=== PATIENT | male | born 1950 | race Caucasian/White ===

== ENCOUNTER → 2016-07-29 | Day surgery (SDC) | payer MEDICARE ==
[~2016-07-29] MED LIST: ASPI81TA2 PO; GABA-586 PO; IV RINGERS,LACTATED 1000ML 1,000 ML IV SCH; LIDOCAINE 2% PF Vial for OR 5 ML VIAL. ONE; MELA3TAB PO; PROPOFOL 20 ML IV ONE; SIMV40TA3 PO
[2016-07-29 08:48] VITALS: BP 112/62
== END | disposition home or self-care (01) ==
LOC: ENDOS 06:48
PROVIDERS: ATTEND Internal Medicine Gastroenterology
DX: Z12.11 Encounter for screening for malignant neoplasm of colon (principal); K64.0 First degree hemorrhoids; E78.00 Pure hypercholesterolemia, unspecified; J44.9 Chronic obstructive pulmonary disease, unspecified; F10.99 Alcohol use, unspecified with unspecified alcohol-induced disorder; F17.200 Nicotine dependence, unspecified, uncomplicated
CPT/HCPCS: G0121; J2704

== ENCOUNTER → 2017-05-12 | Outpatient (CLI) | payer BC ==
[2016-07-29 08:48] VITALS: BP 112/62
[~2017-05-12] MED LIST changes: +ASPI-630 PO; -ASPI81TA2 PO; -IV RINGERS,LACTATED 1000ML 1,000 ML IV SCH; -LIDOCAINE 2% PF Vial for OR 5 ML VIAL. ONE; -MELA3TAB PO; +MELA3TAB2 PO; -PROPOFOL 20 ML IV ONE
--- NOTE | 2017-05-12 11:03 | KCIC ---
INDICATION: Low back pain for years. Right sided pain and numbness into the upper thigh which is new. TECHNIQUE: Sagittal T1, sagittal T2, sagittal STIR, axial T1, and axial T2 sequences are provided. No comparison MRI is available. FINDINGS: There is mild motion degradation. There is no malalignment. There is no marrow edema. There is no worrisome marrow lesion. There is diffuse disc desiccation. There are small Schmorl's nodes. Disc height is relatively maintained. Conus medullaris is normal in signal intensity and in position. Sacral perineural cysts are noted. Subcutaneous edema is noted. The numbering system assumes 5 lumbar type vertebral bodies. Findings by individual level are as follows: T12-L1: There is a diffuse disc bulge. There is a right paracentral extrusion migrating superiorly, as it migrates superiorly it migrates more towards the midline. At its right paracentral base it measures 14 mm transverse. The extrusion component in the midline measures 9 mm transverse, 2 mm AP, and 15 mm craniocaudal. There is facet hypertrophy. There is no canal stenosis, midline AP diameter of the thecal sac still 11-12 mm. There is no foraminal compromise. L1-L2: Central protrusion measures 12 mm at its base and 4 mm in height. There is facet hypertrophy. Midline AP diameter of the thecal sac is still 12-13 mm. There is no foraminal compromise. L2-L3: Disc bulge and mild facet and ligamentum flavum hypertrophy are noted without canal or foraminal compromise. Midline AP diameter of the thecal sac is 14 mm. L3-L4: Disc bulge and mild facet and ligamentum flavum hypertrophy are noted, midline AP diameter of the thecal sac is still 12 mm. There is no foraminal narrowing. L4-L5: There is a disc bulge which is slightly eccentric to the right. There is mild to moderate facet and ligamentum flavum hypertrophy. Midline AP diameter of the thecal sac is narrowed to 9 mm. There is right lateral recess narrowing which could explain a right L5 radiculopathy. There is left lateral recess narrowing as well, to a lesser degree. Foraminal narrowing is [id number] on the right and mild on the left. L5-S1: Disc bulge and facet hypertrophy are noted with [id number] right foraminal narrowing. IMPRESSION: Degenerative changes in the lumbar spine are greatest at L4-L5 and L5-S1. Electronically signed by: Pantera Abel MD (05/12/2017 10:59 AM) [id number]
== END | disposition home or self-care (01) ==
LOC: KCIC MRI 09:24
PROVIDERS: ATTEND Psychiatry & Neurology Neurology
DX: M47.896 Other spondylosis, lumbar region (principal); M47.897 Other spondylosis, lumbosacral region; M54.16 Radiculopathy, lumbar region; R60.9 Edema, unspecified; R20.0 Anesthesia of skin
CPT/HCPCS: 72148

== ENCOUNTER → 2017-07-28 | Outpatient (CLI) | payer BC ==
[~2017-07-28] MED LIST changes: -ASPI-630 PO; -GABA-586 PO; +IOHEXOL 180 MG/ML 10 ML VIAL.; -MELA3TAB2 PO; -SIMV40TA3 PO; +methylPREDNISolone ACETATE 40 MG/ML VIAL.; +methylPREDNISolone ACETATE 80 MG/ML VIAL.
== END ==
LOC: PNCL 12:28
DX: M51.16 Intervertebral disc disorders with radiculopathy, lumbar region (principal); F17.210 Nicotine dependence, cigarettes, uncomplicated; M54.5 Low back pain; M19.90 Unspecified osteoarthritis, unspecified site; E78.00 Pure hypercholesterolemia, unspecified; J44.9 Chronic obstructive pulmonary disease, unspecified; Z85.89 Personal history of malignant neoplasm of other organs and systems; Z98.890 Other specified postprocedural states; Z85.46 Personal history of malignant neoplasm of prostate; Z88.2 Allergy status to sulfonamides; Z85.828 Personal history of other malignant neoplasm of skin
CPT/HCPCS: 62323; J1030; J1040; Q9965

== ENCOUNTER → 2017-09-24 | Outpatient (CLI) | payer BC | END | disposition home or self-care (01) | LOC: PNCL 09:24 | DX: M51.16 Intervertebral disc disorders with radiculopathy, lumbar region (principal); E78.00 Pure hypercholesterolemia, unspecified; J44.9 Chronic obstructive pulmonary disease, unspecified; Z72.89 Other problems related to lifestyle; F17.210 Nicotine dependence, cigarettes, uncomplicated; Z98.890 Other specified postprocedural states; Z85.828 Personal history of other malignant neoplasm of skin | CPT/HCPCS: 62323; J1030; J1040; Q9965 ==

== ENCOUNTER → 2017-12-16 | Outpatient (CLI) | payer BC ==
[~2017-12-16] MED LIST changes: +LIDOCAINE 2% PF 2ML VIAL.
== END | disposition home or self-care (01) ==
LOC: PNCL 09:00
DX: M51.16 Intervertebral disc disorders with radiculopathy, lumbar region (principal); E78.00 Pure hypercholesterolemia, unspecified; J44.9 Chronic obstructive pulmonary disease, unspecified; Z72.89 Other problems related to lifestyle; Z98.890 Other specified postprocedural states; Z85.828 Personal history of other malignant neoplasm of skin; Z79.899 Other long term (current) drug therapy; F17.210 Nicotine dependence, cigarettes, uncomplicated
CPT/HCPCS: 62323; J1030; J1040; J2001; Q9965

== ENCOUNTER → 2018-04-19 | Outpatient (CLI) | payer BC ==
[2016-07-29 08:48] VITALS: BP 112/62
[~2018-04-19] MED LIST changes: +ASPI-630 PO; +GABA300C18 PO; -IOHEXOL 180 MG/ML 10 ML VIAL.; -LIDOCAINE 2% PF 2ML VIAL.; +MELA3TAB2 PO; +NAPR-514 PO; +SIMV40TA3 PO; +TIZA4TAB PO; +VITA1TAB19 PO; -methylPREDNISolone ACETATE 40 MG/ML VIAL.; -methylPREDNISolone ACETATE 80 MG/ML VIAL.
--- NOTE | 2018-04-19 11:43 | KCIC ---
DATE: 04/19/2018 EXAM: DIGITAL DIAGNOSTIC BILATERAL, BREAST RIGHT HISTORY: Right breast lump COMPARISON: Baseline study This study was interpreted with the benefit of Computerized Aided Detection (CAD). Breast Density: FATTY The breast parenchyma is primarily fatty replaced. Breast parenchyma level density A. FINDINGS: The patient cannot pinpoint a lump at this time. Reportedly the area of palpable concern was in the right retroareolar region. The breasts are predominantly fatty in nature. No mass or unusual densities are seen. No suspicious microcalcifications are evident. Benign-appearing lymph node type densities are present in the axillary regions. Right breast ultrasound, 04/19/2018: Right breast was carefully scanned. No mass or unusual fluid collection is seen. IMPRESSION: 1. No mammographic abnormality is detected. 2. The targeted ultrasound exam of the right breast reveals no abnormality. 3. Clinical surveillance is suggested. BI-RADS CATEGORY: 1 NEGATIVE RECOMMENDED FOLLOW-UP: CLIN FOLLOW UP IMAGING CLINICALLY INDICATED PQRS compliance statement: Patient information was entered into a reminder system with a target due date for the next mammogram. Mammography is a sensitive method for finding small breast cancers, but it does not detect them all and is not a substitute for careful clinical examination. A negative mammogram does not negate a clinically suspicious finding and should not result in delay in biopsying a clinically suspicious abnormality. "Our facility is accredited by the [employer] Mammography Program."
== END | disposition home or self-care (01) ==
LOC: KCIC MAMMO 10:13
PROVIDERS: ATTEND Family Medicine
DX: R92.8 Other abnormal and inconclusive findings on diagnostic imaging of breast (principal)
CPT/HCPCS: 76641; 77066

== ENCOUNTER → 2018-07-29 | Outpatient (CLI) | payer BC ==
[2016-07-29 08:48] VITALS: BP 112/62
[~2018-07-29] MED LIST changes: +IOHEXOL 180 MG/ML 10 ML VIAL. ONE; +methylPREDNISolone ACETATE 40 MG/ML VIAL. ONE; +methylPREDNISolone ACETATE 80 MG/ML VIAL. ONE
--- NOTE | 2018-07-30 | PAIN ---
DATE OF SERVICE: 07/29/2018 PROGRESS NOTE FOR PAIN CLINIC DIAGNOSES: Lumbar radiculopathy with lumbar degenerative disk disease. HISTORY OF PRESENT ILLNESS: The patient is a 68-year-old male who returns for followup status post lumbar epidural steroid injections, last seen 12/2017. The patient did very well with about 75% improvement with the injections. The patient reports the pain is returning now in the low back, right lower extremity, posterior gluteus, posterolateral thigh, lateral anterior thigh, anterior medial thigh, medial lower leg and calf; worse with standing, walking, changing positions and better with sitting or lying down. It generally does not awaken him from sleep at night. It is mostly noticeable with walking. The patient reports he did very well over several months, but the pain is returning now in the low back and right leg. The patient reports it is an aching pain that is dull. Some numbness and tingling in the thigh as well anteriorly. The patient reports it is a 10 on scale of 10 at its worst, 8 on average, a 7 at its least and it is a 7 today. The patient reports no new motor or sensory deficits. No new bowel or bladder incontinence or other complaints. Initially, he was doing much better with distance walking, household activities as well as traveling with much greater ease and comfort, but again the pain is returning in the low back and right lower extremity. The patient reports no loss of motor function, but significant fatigability of the right leg. No symptoms on the left side. PHYSICAL EXAMINATION: VITAL SIGNS: The patient's blood pressure is 113/74, pulse 67, respirations 18 and temperature is 98.1 degrees Fahrenheit. Weight is 224 pounds. GENERAL: The patient is awake, alert, oriented and appropriate. He has a very pleasant demeanor. HEENT EXAMINATION: Shows normocephalic, atraumatic. Extraocular movements are intact and symmetrical. Oral cavity, mucous membranes moist and pink. Dentition is intact. NECK: Shows anterior throat supple, without palpable lymphadenopathy noted. Swallow reflex is symmetrical. CHEST: Shows normal with inspection. Breath sounds are clear to auscultation bilaterally. HEART: Shows S1, S2 clear. No murmurs auscultated. ABDOMEN: Soft, nontender and nondistended. No palpable organomegaly is noted. No rebound or guarding demonstrated. BACK: Shows spine grossly in the midline. Normal-appearing thoracic kyphosis and lumbar lordotic curvature. Lumbar paraspinous muscle shows symmetrical on inspection. On palpation, it shows some moderate tenderness diffusely in the middle distribution, without significant radiation. EXTREMITIES: The patient's lower extremities show deep tendon reflexes at 2+ in the patella and 1+ tendo calcaneus tendons, equal. Motor exam is strong with 5/5 on dorsiflexion, extension, quadriceps and hamstring flexion and symmetrical. Peripheral pulses are 1+ posterior tibia. No peripheral edema is noted. The patient does have a mild straight leg raise on the right side, only about 40-45 degrees, decreased with knee flexion; left side is negative. Options were discussed with the patient. The patient's old chart was reviewed as was his current medication regimen updated. Current review of systems updated today as well. We will proceed with a lumbar epidural steroid injection today as the first in this series with fluoroscopic guidance. Risks were again discussed including, but not limited to bleeding, infection, possibility of epidural hematoma, subsequent neurological compromise, dural puncture, headaches, spinal cord and/or nerve damage, side effects of steroid medication and poor results regarding pain control. The patient understands and wishes to proceed. The patient will return to clinic in approximately 2 weeks for followup. He was counseled on his return appointment, activity level, and side effects to be aware of. DIAGNOSES: Lumbar radiculopathy with lumbar degenerative disk disease. PROCEDURE: Lumbar epidural steroid injection in translaminar approach at L4-L5 level using C-arm fluoroscopic guidance under sterile prep and drape using local anesthetic. MEDICATION INJECTED: A total of 120 mg 2 mL of Isovue for contrast. CONDITION AT DISCHARGE: Stable. The patient tolerated procedure well, had no complications. BERAT LEVY MD DR: FRANCESCO/daniel JOB#: [id number] / [id number]
== END | disposition home or self-care (01) ==
LOC: PNCL 10:51
PROVIDERS: ATTEND Anesthesiology
DX: M51.16 Intervertebral disc disorders with radiculopathy, lumbar region (principal)
CPT/HCPCS: 62323; J1030; J1040; Q9965

== ENCOUNTER → 2018-10-27 | Outpatient (CLI) | payer BC ==
[2016-07-29 08:48] VITALS: BP 112/62
[~2018-10-27] MED LIST changes: -IOHEXOL 180 MG/ML 10 ML VIAL. ONE; -methylPREDNISolone ACETATE 40 MG/ML VIAL. ONE; -methylPREDNISolone ACETATE 80 MG/ML VIAL. ONE
--- NOTE | 2018-10-27 13:28 | KCIC ---
Bilateral Leg Venous Doppler Ultrasound, 10/27/2018 Indication: Left lower extremity swelling Comparison: None available Procedure: Real-time grayscale, color flow color duplex Doppler and spectral analysis are obtained with and without compression in the area of the common femoral vein, superficial femoral vein - femoral vein junction, main femoral vein (superficial femoral vein) and popliteal vein. Veins of the proximal calf are also imaged. Findings: There is normal duplex flow, color flow and compressibility of all visualized vein segments. No evidence of deep venous thrombus is present. Impression: Negative venous Doppler of bilateral lower extremity Electronically signed by: Tatyana Ortega MD (10/27/2018 1:25 PM) [place] [id number]
== END | disposition home or self-care (01) ==
LOC: KCIC US 09:43
PROVIDERS: ATTEND Family Medicine
DX: M79.89 Other specified soft tissue disorders (principal)
CPT/HCPCS: 93970

== ENCOUNTER → 2018-11-09 | Outpatient (CLI) | payer BC ==
[2016-07-29 08:48] VITALS: BP 112/62
[~2018-11-09] MED LIST changes: +IOHEXOL 180 MG/ML 10 ML VIAL. ONE; +methylPREDNISolone ACETATE 40 MG/ML VIAL. ONE; +methylPREDNISolone ACETATE 80 MG/ML VIAL. ONE
--- NOTE | 2018-11-09 19:10 | PAIN ---
DATE OF SERVICE: 11/09/2018 PROGRESS NOTE FOR PAIN CLINIC DIAGNOSES: Lumbar radiculopathy with lumbar degenerative disk disease. HISTORY OF PRESENT ILLNESS: The patient is a 68-year-old male who returns for followup status post lumbar epidural steroid injection x 1 in 07/29/2017. He did very well with about 75% improvement. For about the first month, the patient reports the pain is returning now in the low back, right lower extremity mostly in the posterior gluteus, lateral thigh, anterior thigh and medial thigh on the right side. The patient reports it is worse with walking, standing, changing positions, better with sitting or resting, still wakes him from sleep occasionally, but not most nights. The patient reports it is a 10 on a scale of 10 at its worst in the past week, 9 on average and 8 on its least and is an 8 today. The patient reports no new motor or sensory deficits, no new bowel or bladder incontinence. He describes the pain as aching and dull with some shooting pain in the right leg is noticed again with activity. PHYSICAL EXAMINATION: VITAL SIGNS: The patient's blood pressure 132/71, pulse 64, respirations 18, temperature 98.2 degrees Fahrenheit, height 6 feet 1 inch, weight is 225 pounds. GENERAL: The patient is awake, alert, oriented, appropriate, very pleasant demeanor. HEENT: Head is normocephalic, atraumatic. Extraocular movements are intact and symmetrical. Oral cavity: Mucous membranes moist and pink. Dentition is intact. NECK: Shows anterior throat supple without palpable lymphadenopathy noted. Swallow reflex symmetrical. CHEST: Shows normal with inspection. Breath sounds clear to auscultation bilaterally. HEART: Shows S1, S2 clear. No murmurs auscultated. ABDOMEN: Soft, nontender, nondistended. No palpable organomegaly is noted. There is no rebound or guarding demonstrated. BACK: Shows spine grossly in the midline. Normal appearing thoracic kyphosis and lumbar lordotic curvature. Lumbar paraspinous muscle shows symmetrical on inspection. On palpation shows some moderate tenderness diffusely, but only diffusely in the low lumbar distribution without radiation. The patient has good rotational motion of the lumbar spine, both laterally as well as extension and flexion without difficulty. EXTREMITIES: The patient's lower extremities show deep tendon reflexes at 2+ in the patellar, 1+ tendo-calcaneus tendons. Motor exam is strong with 5/5 dorsiflexion, extension, quadriceps and hamstring flexion and are symmetrical. Peripheral pulses are 1+ posterior tibial. No peripheral edema is noted bilaterally. Options were discussed with the patient. The patient's old chart was reviewed as his current medication regimen updated. Current review of systems updated today as well. We will proceed with a second in this series of lumbar epidural steroid injection today with fluoroscopic guidance. Risks were again discussed including, but not limited to bleeding, infection, possibility of epidural hematoma, subsequent neurological compromise, dural puncture, headaches, spinal cord and/or nerve damage, side effects of steroid medication and poor results regarding pain control. The patient understands and wished to proceed. The patient will return to clinic in approximately 2 weeks for followup, was counseled as to return appointment, activity level and side effects to be aware of. DIAGNOSES: Lumbar radiculopathy with lumbar degenerative disk disease. PROCEDURE: Lumbar epidural steroid injection, translaminar approach L4-L5 level using C-arm fluoroscopic guidance under sterile prep and drape using local anesthetic. MEDICATION INJECTED: A total of 120 mg Depo-Medrol plus 10 mL of preservative-free normal saline and 2 mL of Isovue for contrast. CONDITION AT DISCHARGE: Stable. The patient tolerated procedure well, had no complications. BERTA LEVY MD DR: FRANCESCO/daniel JOB#: [id number] / [id number]
== END ==
LOC: PNCL 09:17
PROVIDERS: ATTEND Anesthesiology
DX: M51.16 Intervertebral disc disorders with radiculopathy, lumbar region (principal); M54.5 Low back pain
CPT/HCPCS: 62323; J1030; J1040; Q9965

== ENCOUNTER → 2019-02-03 | Outpatient (CLI) | payer BC ==
[2016-07-29 08:48] VITALS: BP 112/62
[~2019-02-03] MED LIST changes: -MELA3TAB2 PO; +MELA3TAB56 PO; -TIZA4TAB PO; +TIZA4TAB2 PO
--- NOTE | 2019-02-03 20:45 | PAIN ---
DATE OF SERVICE: 02/03/2019 PROGRESS NOTE FOR PAIN CLINIC DIAGNOSES: Lumbar radiculopathy with lumbar degenerative disk disease. HISTORY OF PRESENT ILLNESS: The patient is a 68-year-old male who returns for followup status post lumbar epidural steroid injection x 2, last seen 11/09/2018, very well, about 75% improvement only for several weeks after the injection. The patient reports that after that time, the pain returns, fairly significantly low back and right lower extremity, mostly in the posterior gluteus, posterior thigh, lateral calf, lateral thigh and anterior thighs to some extent in the posterior calf as well. The patient reports it is a 10 on a scale of 10 at its worst over the past week 10 on average and 9 at its least and is a 10 today. The patient reports it is aching and dull, shooting at times, worse with walking, standing, sitting for prolonged periods. Does not awaken her from sleep at night; however, initially was doing better with distance walking, doing work activities, household activities. 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 PHYSICAL EXAMINATION: VITAL SIGNS: The patient's blood pressure 123/69, pulse 67, respirations are 16, temperature is 98.4 degrees Fahrenheit, weight is 227 pounds. GENERAL: The patient is awake, alert, oriented, appropriate, very pleasant demeanor. HEENT: Shows normocephalic, atraumatic. Extraocular movements are intact and symmetrical. Oral cavity: Mucous membranes moist and pink. Dentition is intact. NECK: Shows anterior throat supple without palpable lymphadenopathy noted. Swallow reflex symmetrical. CHEST: Shows normal on inspection. Breath sounds are clear to auscultation bilaterally. HEART: Shows S1, S2 clear. No murmurs auscultated. ABDOMEN: Soft, nontender, nondistended. No palpable organomegaly is noted. No rebound or guarding demonstrated. BACK: Shows spine grossly in the midline. Normal appearing thoracic kyphosis, some minor flattening of lumbar lordotic curvature. Lumbar paraspinous muscle shows symmetrical on inspection, on palpation shows some moderate tenderness, but only diffusely without radiation. EXTREMITIES: The patient's lower extremities show deep tendon reflexes 2+ in the patellar, 1+ tendo-calcaneus tendons. Motor exam is strong with 5/5 dorsiflexion, extension, quadriceps and hamstring flexion symmetrical. Peripheral pulses are 1+ posterior tibia. No peripheral edema is noted. Options were discussed with the patient. The patient's old chart was reviewed as his current medication regimen updated. Current review of systems updated today as well. We will proceed with a third in the series of lumbar epidural steroid injection today with fluoroscopic guidance. Risks were again discussed including, but not limited to bleeding, infection, possibility of epidural hematoma, subsequent neurologic compromise, dural puncture, headaches, spinal cord and/or nerve damage, side effects of steroid medication and poor results regarding pain control. The patient understands and wished to proceed. The patient will return to clinic in approximately 2 weeks for followup. She was counseled on return appointment, activity level and side effects to be aware of. DIAGNOSIS: Lumbar radiculopathy with lumbar degenerative disk disease. PROCEDURE: Lumbar epidural steroid injection, translaminar approach at the L4-L5 level using C-arm fluoroscopic guidance under sterile prep and drape using local anesthetic. MEDICATION INJECTED: The patient received a total of 120 mg Depo-Medrol plus 10 mL of preservative-free normal saline and 2 mL of contrast. CONDITION AT DISCHARGE: Stable. The patient tolerated the procedure well, had no complications. BERTA LEVY MD DR: FRANCESCO/daniel JOB#: [id number] / [id number]
== END ==
LOC: PNCL 11:05
PROVIDERS: ATTEND Anesthesiology
DX: M51.16 Intervertebral disc disorders with radiculopathy, lumbar region (principal)
CPT/HCPCS: 62323; J1030; J1040; Q9965

== ENCOUNTER → 2019-05-04 | Outpatient (CLI) | payer BC ==
[2016-07-29 08:48] VITALS: BP 112/62
[~2019-05-04] MED LIST changes: -IOHEXOL 180 MG/ML 10 ML VIAL. ONE; +SIMV40TA18 PO; -SIMV40TA3 PO; -methylPREDNISolone ACETATE 40 MG/ML VIAL. ONE; -methylPREDNISolone ACETATE 80 MG/ML VIAL. ONE
--- NOTE | 2019-05-04 11:50 | KCIC ---
MRI Lumbar Spine without contrast History: Right lumbar radiculopathy, pain and numbness in the right thigh Technique: Multiplanar, multi sequential noncontrast MR imaging was performed of the lumbar spine. Comparison: May 12, 2017 Findings: There is some motion degradation. Lumbar vertebral body stature is similar, overall maintained other than small Schmorl's nodes. AP alignment is maintained. Conus terminates at the inferior aspect of L1. 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 There is no significant marrow edema. There has been progression of mild to moderate L5-S1 degenerative disc disease, also mild L4-5 degenerative disc disease, and mild disc desiccation L2-3 and L3-4. There is no significant marrow edema. T12-L1: There is again posterior protrusion about 2 to 3 mm AP slightly indenting the ventral thecal sac without spinal stenosis. There is mild buckling of the ligamentum flavum. Neural foramina are adequate. L1-L2: There is again shallow posterior protrusion and small extrusion extending very slightly above the intervertebral disc space about 2 to 3 mm AP. There is minimal buckling of the ligamentum flavum. Spinal canal and neural foramina are overall adequate. L2-L3: There is mild buckling of the ligamentum flavum and facet degenerative change. Neural foramina and spinal canal are adequate. L3-L4: There is mild buckling of the ligamentum flavum and moderate right greater than left facet degenerative change. There is minimal disc osteophyte complex. There is similar very mild narrowing of the far lateral recesses bilaterally, central canal adequate. Neural foramina are adequate. L4-L5: There is moderate facet hypertrophic change and [id number] buckling of the ligamentum flavum. There is some fluid in facet articulations bilaterally greater on the left. There is minimal bulge. There is similar mild to moderate narrowing of the far right lateral recess, minimally on the left. Central canal is adequate.. There is very mild inferior narrowing of left neural foramen by disc osteophyte complex, right neural foramen adequate. L5-S1: There is again minimal posterior disc osteophyte complex and bulge. Spinal canal is adequate. There is mild facet degenerative change greater on the right, minimal fluid in the facet articulations. There is minimal buckling of the ligamentum flavum. There is minimal narrowing of the right neural foramen, left neural foramen adequate. Impression: 1. Other than progression of L5-S1 degenerative disc disease, findings are similar comparing with the 2017 exam. There is similar degree of [id number] narrowing of the far right lateral recess at L4-5, minimal narrowing on the left at L4-5 and very minimal narrowing bilaterally at L3-4. There is similar minimal narrowing of the left L4-5 and right L5-S1 neural foramina. Electronically signed by: Lazarus Patel MD (05/04/2019 11:47 AM) [email or web address]
== END ==
LOC: KCIC MRI 09:17
PROVIDERS: ATTEND Anesthesiology
DX: M51.16 Intervertebral disc disorders with radiculopathy, lumbar region (principal); M48.061 Spinal stenosis, lumbar region without neurogenic claudication
CPT/HCPCS: 72148

== ENCOUNTER → 2019-05-25 | Outpatient (CLI) | payer BC ==
[2016-07-29 08:48] VITALS: BP 112/62
[~2019-05-25] MED LIST changes: +IOHEXOL 180 MG/ML 10 ML VIAL. ONE; +methylPREDNISolone ACETATE 40 MG/ML VIAL. ONE; +methylPREDNISolone ACETATE 80 MG/ML VIAL. ONE
--- NOTE | 2019-05-25 16:07 | PAIN ---
DATE OF SERVICE: 05/25/2019 PROGRESS NOTE FOR PAIN CLINIC DIAGNOSES: Lumbar radiculopathy with lumbar degenerative disk disease. HISTORY OF PRESENT ILLNESS: The patient is a 68-year-old male who returns for followup status post lumbar epidural steroid injections x 3, last seen on 02/03/2019. The patient did very well with the injection about a month and a half, the pain reduced by about 75%. The patient reports the pain has been returning now, but not every day. It is there intermittently, worse with activity, standing, walking, changing positions in the low back and the right hip, right posterior gluteus, posterolateral thigh, lateral anterior thigh and medial thigh, is aching and dull, shooting. The patient reports it is at 7 on a scale of 10 at its worst over the past week, 5 on average, 4 at its least and is a 4 today. The patient reports it is better with sitting or lying down, does not awaken him from sleep at night. Initially, he was doing much better with distance walking, doing household activities with greater ease and comfort. The patient reports now the pain is returning, but better with sitting. It is not a constant pain. The patient reports no new motor or sensory deficits, no new bowel or bladder incontinence or other complaints. PHYSICAL EXAMINATION: VITAL SIGNS: The patient's blood pressure is 120/70, pulse 66, respirations 16, temperature 97.6 degrees Fahrenheit, height is 6 feet 1 inch, weight is 223 pounds. GENERAL: The patient is awake, alert, oriented, appropriate, very pleasant demeanor. HEENT: Shows normocephalic, atraumatic. Extraocular movements are intact and symmetrical. Oral cavity shows mucous membranes moist and pink. Dentition is intact. NECK: Shows anterior throat supple without palpable lymphadenopathy noted. Swallow reflex symmetrical. CHEST: Shows normal on inspection. Breath sounds are clear bilaterally. HEART: Shows S1, S2 clear. No murmurs auscultated. ABDOMEN: Soft, nontender, nondistended. BACK: Shows spine grossly in the midline. Normal-appearing thoracic kyphosis and some minor flattening of lumbar lordotic curvature. Lumbar paraspinous muscle shows symmetrical on inspection, with palpation shows some mild tenderness, but only diffusely in the lower lumbar distribution without radiation. The patient has good rotational motion of lumbar spine, both laterally as well extension and flexion without difficulty. EXTREMITIES: The patient's lower extremities show deep tendon reflexes 2+ in the patellar, 1+ in tendo-calcaneus tendons. Motor exam is strong with 5/5 dorsiflexion, extension, quadriceps and hamstring flexion. Peripheral pulses are 1+ in posterior tibia. No peripheral edema is noted bilaterally. PLAN: Options were discussed with the patient. The patient's old chart was reviewed as his current medication regimen updated. Current review of systems updated today as well. We will proceed with a first in this series of lumbar epidural steroid injection today with fluoroscopic guidance. Risks were again discussed including, but not limited to bleeding, infection, possibility of epidural hematoma, subsequent neurological compromise, dural puncture headaches, spinal cord and/or nerve damage, side effects of steroid medication and poor results regarding pain control. The patient understands and wished to proceed. The patient will return to the clinic in approximately 2 weeks for followup. He was counseled as to return appointment, activity level and side effects to be aware of. DIAGNOSES: Lumbar radiculopathy with lumbar degenerative disk disease. PROCEDURE: Lumbar epidural steroid injection, translaminar approach L4-L5 level using C-arm fluoroscopic guidance under sterile prep and drape using local anesthetic. MEDICATION INJECTED: A total of 120 mg of Depo-Medrol plus 10 mL of preservative-free normal saline and 2 mL of contrast. CONDITION AT DISCHARGE: Stable. The patient tolerated the procedure well, had no complications. BERTA LEVY MD DR: FRANCESCO/daniel JOB#: [id number] / [id number]
== END ==
LOC: PNCL 09:51
PROVIDERS: ATTEND Anesthesiology
DX: M51.16 Intervertebral disc disorders with radiculopathy, lumbar region (principal)
CPT/HCPCS: 62323; J1030; J1040; Q9965

== ENCOUNTER → 2019-10-31 | Outpatient (CLI) | payer BC ==
[2016-07-29 08:48] VITALS: BP 112/62
[~2019-10-31] MED LIST changes: +MELA3TAB4 PO; -MELA3TAB56 PO
--- NOTE | 2019-10-31 14:18 | PAIN ---
DATE OF SERVICE: 10/31/2019 PROGRESS NOTE FOR PAIN CLINIC DIAGNOSES: Lumbar radiculopathy with lumbar degenerative disk disease. HISTORY OF PRESENT ILLNESS: The patient is an 86-year-old male who returns for followup status post lumbar epidural steroid injection, last seen on 05/25/2019. The patient reports approximately 50% improvement overall. Initially, he was doing much better with about 80% improvement, but over the past few weeks, has decreased about 60% with pain in the low back and right lower extremity, posterior gluteus, posterolateral thigh, lateral anterior thigh, anterior medial thigh and medial lower leg. The patient reports it is an 8 on a scale of 10 at its worse over the past week, 6 on average and 4 at its least and is a 4 today. The patient reports it is aching, radiating, on and off in intensity, worse with activity, better with sitting or lying down. It generally does not awaken him from sleep at night. The patient reports he was doing much better initially with distance walking, doing work activities, household activities with greater ease and comfort, traveling with greater ease as well. PHYSICAL EXAMINATION: VITAL SIGNS: The patient's blood pressure is 135/76, pulse 64, respirations 18, temperature 98.3 degrees Fahrenheit, height 6 feet 1 inch, weight is 223 pounds. GENERAL: The patient is awake, alert, oriented, appropriate, very pleasant demeanor. HEENT: Shows normocephalic, atraumatic. Extraocular movements are intact and symmetrical. Oral cavity: Mucous membranes are moist and pink. Dentition is intact. NECK: Shows anterior throat supple without palpable lymphadenopathy noted. Swallow reflex symmetrical. CHEST: Shows normal on inspection. Breath sounds are clear. No rales, rhonchi or wheezes auscultated. HEART: Shows S1, S2 clear. No murmurs auscultated. ABDOMEN: Soft, nontender, nondistended. No palpable organomegaly is noted. No rebound or guarding demonstrated. BACK: Shows spine grossly in the midline. Normal-appearing thoracic kyphosis and minor flattening of lumbar lordotic curvature. Lumbar paraspinous muscle shows symmetrical on inspection, on palpation shows some moderate tenderness only in the lower lumbar distribution, greater on the right than the left, but present bilaterally without atrophy, hypertrophy and without trigger points. The patient has good rotational motion of the lumbar spine both laterally as well as extension and flexion without significant pain reported. EXTREMITIES: Lower extremities show deep tendon reflexes 2+ in the patellar, 1+ tendo-calcaneus tendons. Motor exam is strong with dorsiflexion, extension, quadriceps and hamstring flexion 5/5 equal. Peripheral pulses are 1+ in the posterior tibia. No peripheral edema is noted bilaterally. Options were discussed with the patient. The patient's old chart was reviewed as his current medication regimen updated. Current review of systems updated today as well. We will proceed with a lumbar epidural steroid injection today with second in this series with fluoroscopic guidance. Risks were again discussed including, but not limited to bleeding, infection, possibility of epidural hematoma, subsequent neurological compromise, dural puncture, headaches, spinal cord and/or nerve damage, side effects of steroid medication and poor results regarding pain control. The patient understands and wished to proceed. The patient will return to clinic in approximately 2 weeks for followup. He was counseled on return appointment, activity level and side effects to be aware of. DIAGNOSIS: Lumbar radiculopathy with lumbar degenerative disk disease. PROCEDURE: Lumbar epidural steroid injection, translaminar approach at L4-L5 level using C-arm fluoroscopic guidance under sterile prep and drape using local anesthetic. MEDICATION INJECTED: A total of 120 mg Depo-Medrol plus 10 mL of preservative-free normal saline and 2 mL of contrast. CONDITION AT DISCHARGE: Stable. The patient tolerated the procedure well and had no complications. BERTA LEVY MD DR: FRANCESCO/daniel JOB#: [id number] / [id number]
== END | disposition home or self-care (01) ==
LOC: PNCL 10:01
PROVIDERS: ATTEND Anesthesiology
DX: M51.16 Intervertebral disc disorders with radiculopathy, lumbar region (principal); J44.9 Chronic obstructive pulmonary disease, unspecified; E78.00 Pure hypercholesterolemia, unspecified; Z87.891 Personal history of nicotine dependence; Z79.899 Other long term (current) drug therapy
CPT/HCPCS: 62323; J1030; J1040; Q9965

== ENCOUNTER → 2019-12-28 | Outpatient (CLI) | payer BC ==
[2016-07-29 08:48] VITALS: BP 112/62
[~2019-12-28] MED LIST changes: -IOHEXOL 180 MG/ML 10 ML VIAL. ONE; -methylPREDNISolone ACETATE 40 MG/ML VIAL. ONE; -methylPREDNISolone ACETATE 80 MG/ML VIAL. ONE
--- NOTE | 2019-12-28 18:40 | KCIC ---
EXAM: AP, lateral and lumbosacral spot views of the lumbar spine DATE: 12/28/2019 12:00 AM INDICATION: Reason: LBP, LT HIP PAIN, / Spl. Instructions: Worsening hip pain, Lt radiculopathy / History: COMPARISON: No Prior FINDINGS: For the purposes of this report there are small ribs at L1. Vertebral body heights are preserved. Trace anterolisthesis of L4 on L5. Mild L3-4, L4-5 and L5-S1 disc height loss. Mild rightward curvature of the lumbar spine apex L2-3. Atherosclerotic vascular calcifications are seen. IMPRESSION: 1. Negative acute fracture or subluxation. 2. Multilevel spondylosis as above. Electronically signed by: Carrington Stanford MD (12/28/2019 6:37 PM) LUIS
--- NOTE | 2019-12-28 18:41 | KCIC ---
EXAM: AP pelvis, lateral view left hip DATE: 12/28/2019 12:00 AM INDICATION: Reason: CHRONIC LBP AND LT HIP PAIN / Spl. Instructions: Worsening hip pain, Lt radiculopathy / History: COMPARISON: No Prior FINDINGS: No evidence of acute fracture or dislocation. Bilateral hip joint osteoarthritis with moderate to severe left hip joint space narrowing and associated proliferative change. Mild right hip joint space narrowing.. No pubic symphysis or SI joint diastases. Moderate colonic stool content. IMPRESSION: 1. No evidence of acute fracture or dislocation. 2. Bilateral hip joint degenerative changes with greater joint space loss on the left. Electronically signed by: Carrington Stanford MD (12/28/2019 6:38 PM) LUIS
== END | disposition home or self-care (01) ==
LOC: KCIC 10:55
PROVIDERS: ATTEND Family Medicine
DX: M16.0 Bilateral primary osteoarthritis of hip (principal); M47.816 Spondylosis without myelopathy or radiculopathy, lumbar region; M43.17 Spondylolisthesis, lumbosacral region; M43.8X6 Other specified deforming dorsopathies, lumbar region; G89.29 Other chronic pain
CPT/HCPCS: 72100; 73501

== ENCOUNTER → 2020-02-20 | Outpatient (CLI) | payer BC ==
[2016-07-29 08:48] VITALS: BP 112/62
--- NOTE | 2020-02-20 08:19 | RAD ---
Examination: ABDOMEN COMPLETE History: Reason: ABNORMAL LFT'S / Spl. Instructions: / History: Comparison/Correlation: None Findings: Complete abdominal ultrasound was performed. Fatty infiltration of the liver is present. Portal venous flow is unremarkable. At least one calculus in the gallbladder is present measuring up to 1.5 cm in diameter. No gallbladder wall thickening or pericholecystic fluid. No biliary dilatation. Proximal pancreas is normal. Distal pancreas obscured by bowel gas. Right kidney measures 10.9 cm x 4.9 cm x 5.1 cm the left kidney measures 11.7 cm x 4.4 cm x 5.8 cm. No hydronephrosis. Renal contours and echotexture are unremarkable. Spleen is unremarkable. Visualized inferior vena cava and abdominal aorta are unremarkable. Impression: Fatty infiltration of the liver. Cholelithiasis. Electronically signed by: Librado Angeles MD (02/20/2020 8:16 AM) [id number]
== END ==
LOC: US 06:45
PROVIDERS: ATTEND Family Medicine
DX: K76.0 Fatty (change of) liver, not elsewhere classified (principal); K80.20 Calculus of gallbladder without cholecystitis without obstruction
CPT/HCPCS: 76700

== ENCOUNTER → 2020-03-21 | Outpatient (CLI) | payer BC ==
[2016-07-29 08:48] VITALS: BP 112/62
--- NOTE | 2020-03-21 11:39 | RAD ---
EXAM: Maxillofacial bone CT without contrast. HISTORY: Sinusitis. TECHNIQUE: Computed tomographic images of the maxillofacial bones were obtained without contrast. *One or more of the following individualized dose reduction techniques were utilized for this examination: 1. Automated exposure control. 2. Adjustment of the mA and/or kV according to patient size. 3. Use of iterative reconstruction technique. COMPARISON: None. FINDINGS: There is near complete opacification of the frontal, ethmoid and maxillary sinuses. There is erosive changes involving the ethmoid septae and medial maxillary wall. There is obstruction of the ostiomeatal units. There is leftward nasal septal deviation. The sphenoid sinus is clear. There is incidental calcification along the anterior superior medial orbits. This is associated with the trochlea and is typically senescent finding. The orbits are otherwise unremarkable. The mastoid air cells are clear. The visualized portions of the brain and calvarium are unremarkable. 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 Electronically signed by: Raine Patrick MD (03/21/2020 11:36 AM) [id number]
== END ==
LOC: CT 10:37
PROVIDERS: ATTEND Family Medicine
DX: J32.9 Chronic sinusitis, unspecified (principal)
CPT/HCPCS: 70486

== ENCOUNTER → 2020-07-26 | Outpatient (CLI) | payer BC ==
[2016-07-29 08:48] VITALS: BP 112/62
--- NOTE | 2020-07-26 10:15 | PDOC ---
Progress Note - Pain Clinic Date of Service: DOS: DATE: 07/26/20 TIME: 10:12 Diagnosis: Dx: Lumbar radiculopathy with lumbar degenerative disc disease History or Present Illness: HPI: 70-year-old male returns follow-up status post lumbar epidural steroid injection last seen October 31, 2019. Patient reports did very well with about 75% improvement after the last injection. Patient reports pain is returning now in the low back and has been present for about a month to month and a half in the low back radiating to the right lower extremity posterior gluteus posterior lateral thigh lateral anterior thigh anteromedial thigh medial lower leg and into the calf patient reports is worse with walking standing changing positions better with sitting or laying down rates his pain is a 9 on scale 10 is worst 9 on average and a 6 at its least over the past week and is a 9 today patient reports is aching dull shooting radiating aching and cramping in the back with shooting type pains in the leg. Patient reports it wakes him from sleep occa sionally but usually is better with sitting or laying down patient reports no new motor or sensory deficits no new bowel or bladder incontinence still has significant radicular pain in the right lower extremity again significantly improved after last injection October of last year. Physical Exam: VS: Pressure is 133/76 pulse 65 respirations 18 temperature 98.2 F weight is 217 pounds PE: PHYSICAL EXAMINATION: GENERAL: The patient is awake, alert, oriented, appropriate, very pleasant demeanor HEENT: Shows normocephalic, atraumatic. Extraocular movements are intact and symmetrical. Oral cavity: Mucous membranes moist and pink. Dentition is intact. NECK: Shows anterior throat supple without palpable lymphadenopathy noted. Swallow reflex symmetrical. CHEST: Shows normal on inspection. Breath sounds are clear bilaterally, no rales rhonchi or wheezes auscultated. HEART: Shows S1, S2 clear. No murmurs auscultated. ABDOMEN: Soft, nontender, nondistended, obese. No palpable organomegaly is noted. No rebound or guarding demonstrated. BACK: Shows spine grossly in the midline. Normal-appearing cervical lordotic curvature. There is slightly increased thoracic kyphosis, some minor flattening of the lumbar lordotic curvature. Lumbar paraspinous muscles show symmetrical on inspection, on palpation shows some moderate tenderness diffusely throughout the upper, middle and lower distribution of the paraspinous muscles without specific trigger points, without radiation of pain. The patient has good rotational motion of the lumbar spine, both laterally as well as extension and flexion without significant difficulty. No tenderness over the spinous processes, sacrum or sacroiliac regions. EXTREMITIES: Lower extremities show deep tendon reflexes 2+ in the patellar and tendo calcaneus tendons. Motor exam is 5 on a scale of 5 with right dorsiflex ion, extension, quadriceps and hamstring flexion and 5/5 on the left. Peripheral pulses are 1+ posterior tibial. No peripheral edema is noted bilaterally. Lower extremities are warm and dry to touch, equal in color and appearance. SKIN: Shows warm and dry, good turgor. No edema. No sores, rashes or bruising throughout. Procedure: Procedure: Options were discussed with the patient. Patient chart reviews his current medication regimen updated current review of systems updated today as well. We will proceed with preauthorization for a lumbar epidural steroid injection is done very well with these in the past. Patient has clinical right-sided L4-5 radiculopathy again significantly improved after about 75% after the last injection for over a month. Patient will continue with stretching and strength and exercise as well as oral analgesics as he has been taking mostly Motrin and Tylenol as currently. Patient will return to the clinic once preauthorization is obtained we will plan on translaminar approach at the L4-5 level lumbar epidural steroid injection at that time. Medication Injected: Med Injected: None Condition at Discharge: Condition at Discharge: Condition at discharge is stable. BERTA LEVY MD Jul 26, 2020 10:15
== END | disposition home or self-care (01) ==
LOC: PNCL 09:06
PROVIDERS: ATTEND Anesthesiology
DX: M51.16 Intervertebral disc disorders with radiculopathy, lumbar region (principal); Z98.890 Other specified postprocedural states
CPT/HCPCS: G0463

== ENCOUNTER → 2020-08-16 | Outpatient (CLI) | payer BC ==
[2016-07-29 08:48] VITALS: BP 112/62
[~2020-08-16] MED LIST changes: +IOHEXOL 180 MG/ML 10 ML VIAL. ONE; +methylPREDNISolone ACETATE 40 MG/ML VIAL. ONE; +methylPREDNISolone ACETATE 80 MG/ML VIAL. ONE
--- NOTE | 2020-08-16 09:10 | PDOC ---
Progress Note - Pain Clinic Date of Service: DOS: DATE: 08/16/20 TIME: 09:08 Diagnosis: Dx: Lumbar radiculopathy with lumbar degenerative disc disease History or Present Illness: HPI: 70-year-old male returns for follow-up status post initial evaluation and preauthorization for lumbar epidural steroid injection. Patient reports still significant pain the low back and right lower extremity as it was previously low back posterior gluteus posterior lateral thigh lateral anterior thigh anterior medial thigh medial lower leg on the right side. Patient reports is aching and radiating in the right leg rate is a 9 on scale 10 is worst average and a 6 on h is least is a 9 today patient reports aching radiating shooting pain dull in the back as well as sharper in the leg patient reports is worse with walking standing changing positions better with sleeping and laying down at night does not awaken her from sleep. Patient reports no new motor or sensory deficits no new bowel or bladder incontinence or other complaints. Physical Exam: VS: Blood pressure is 126/7977 respirations are 18 temperature 97.6 F weight is 216 pounds PE: PHYSICAL EXAMINATION: GENERAL: The patient is awake, alert, oriented, appropriate, very pleasant demeanor HEENT: Shows normocephalic, atraumatic. Extraocular movements are intact and symmetrical. Oral cavity: Mucous membranes moist and pink. Dentition is intact. NECK: Shows anterior throat supple without palpable lymphadenopathy noted. Swallow reflex symmetrical. CHEST: Shows normal on inspection. Breath sounds are clear bilaterally, no rales or rhonchi bilaterally. HEART: Shows S1, S2 clear. No murmurs auscultated. ABDOMEN: Soft, nontender, nondistended, obese. No palpable organomegaly is noted. BACK: Shows spine grossly in the midline. Normal-appearing cervical lordotic curvature. There is slightly increased thoracic kyphosis, some minor flattening of the lumbar lordotic curvature. Lumbar paraspinous muscles show symmetrical on inspection, on palpation shows some moderate tenderness diffusely throughout the upper, middle and lower distribution of the paraspinous muscles, but without specific trigger points, without radiation of pain. The patient has good rotational motion of the lumbar spine, both laterally as well as extension and flexion without significant difficulty. EXTREMITIES: Lower extremities show deep tendon reflexes 2+ in the patellar and tendo calcaneus tendons. Motor exam is 5 on a scale of 5 with right dorsiflexion, extension, quadriceps and hamstring flexion and 5/5 on the left. Peripheral pulses are 1+ posterior tibial. No peripheral edema is noted colt aterally. Lower extremities are warm and dry to touch, equal in color and appearance. SKIN: Shows warm and dry, good turgor. No edema. No sores, rashes or bruising throughout. Procedure: Procedure: Options discussed with the patient. Patient chart reviews his current medication regimen updated current review of systems updated today as well. We will proceed with a lumbar epidural steroid traction today with fluoroscopic guidance. Risks were discussed including but not limited to: Bleeding, infection, possibility of epidural hematoma and subsequent neurological compromise, dural puncture, headaches, spinal cord and/or nerve damage, side effects of steroid medication, and poor results regarding pain control. Patient understands and wished to proceed. Patient will return to the clinic in approximate 2 weeks for follow-up with counselors return appointment activity level and side effects to be aware of. Medication Injected: Med Injected: Procedure is lumbar epidural steroid injection under local anesthetic using sterile prep and drape at the L4-5 level using C-arm fluoroscopic guidance in both AP and lateral views medications injected is 120 mg Depo-Medrol + 10 mL preservative-free normal saline and 2 mL contrast- condition at discharge is stable patient tolerated procedure well had no complications. Condition at Discharge: Condition at Discharge: Condition at discharge stable, patient alert procedure well and had no complications. BERTA LEVY MD Aug 16, 2020 09:10
--- NOTE | 2020-08-16 09:11 | PDOC4 ---
PROCEDURE Procedure Patient was consented for lumbar epidural steroid injection. Risks were dis cussed including but not limited to: Bleeding, infection, possibility of epidural hematoma and subsequent neurological compromise, dural puncture, headaches, spinal cord and/or nerve damage, side effects of steroid medication, and poor results regarding pain control. Patient understands and wished to proceed. Procedure is lumbar epidural steroid injection under local anesthetic using sterile prep and drape at the L4-5 level using C-arm fluoroscopic guidance in both AP and lateral views medications injected is 120 mg Depo-Medrol + 10 mL preservative-free normal saline and 2 mL contrast- condition at discharge is stable patient tolerated procedure well had no complications. BERTA LEVY MD Aug 16, 2020 09:11
== END | disposition home or self-care (01) ==
LOC: PNCL 08:27
PROVIDERS: ATTEND Anesthesiology
DX: M51.16 Intervertebral disc disorders with radiculopathy, lumbar region (principal); J44.9 Chronic obstructive pulmonary disease, unspecified; E78.00 Pure hypercholesterolemia, unspecified; Z85.828 Personal history of other malignant neoplasm of skin; Z87.891 Personal history of nicotine dependence; Z79.899 Other long term (current) drug therapy; Z98.890 Other specified postprocedural states; Z72.89 Other problems related to lifestyle
CPT/HCPCS: 62323; J1030; J1040; Q9965

== ENCOUNTER → 2021-09-19 | Outpatient (CLI) | payer BC, OTHER ==
[2016-07-29 08:48] VITALS: BP 112/62
[~2021-09-19] MED LIST changes: -IOHEXOL 180 MG/ML 10 ML VIAL. ONE; +TIZA-75 PO; -TIZA4TAB2 PO; -methylPREDNISolone ACETATE 40 MG/ML VIAL. ONE; -methylPREDNISolone ACETATE 80 MG/ML VIAL. ONE
--- NOTE | 2021-09-19 11:42 | PDOC ---
Progress Note - Pain Clinic Date of Service: DOS: DATE: 09/19/21 TIME: 11:37 Diagnosis: Dx: Lumbar radiculopathy with lumbar degenerative disc disease History or Present Illness: HPI: 71-year-old male returns for follow-up status post lumbar epidural steroid injection last seen August 16, 2020 patient did very well about 75% improvement with the injection but pain returning now in the right lower extremity in the low back patient reports in the posterior gluteus posterior lateral thigh lateral anterior thigh anteromedial thigh medial lower leg and medial ankle on the right side worse with walking standing changing positions better with sitting or laying down patient reports no motor loss but significant fatigability of the right lower extremity patient has been doing a physical therapy exercises which she learned from therapy years ago and has been doing exercises now on his own also has seen chiropractic in the past and is doing some manipulations and stretching of the back as well as the lower extremity but this did not decrease the pain significantly patient reports usually they will help but over the past month or so has not gotten any relief from the stretching exercises that he is doing. Patient has been taking [id number] Advil as well as Tylenol and gabapentin but without significant reduction with the medications as well. Patient reports the pain is increasing worse with walking and standing describes aching and dull in the back radiating shooting constant can be burning and stabbing in the right lower extremity. Patient rates as a 9 on scale 10 is worst 9 on average 8 its least is an 8 today. Patient reports no bowel or bladder incontinence no loss of motor function. Patient's MRI scan was reviewed showing disc bulge at L4-5 eccentric to the right with right lateral recess narrowing with foraminal narrowing mild to moderate on the right as well. Patient reports no bowel or bladder incontinence. Physical Exam: VS: Blood pressure is 130/80 pulse 95 respirations 18 temperature 90.1 F height is 6 foot 1 inch weight is 219 pounds. PE: PHYSICAL EXAMINATION: GENERAL: The patient is awake, alert, oriented, appropriate, very pleasant in demeanor HEENT: Shows normocephalic, atraumatic. Extraocular movements are intact and symmetrical. Oral cavity: Mucous membranes moist and pink. Dentition is intact. NECK: Shows anterior throat supple without palpable lymphadenopathy noted. Swallow reflex symmetrical. CHEST: Shows normal on inspection. Breath sounds are clear bilaterally. HEART: Shows S1, S2 clear. No murmurs auscultated. ABDOMEN: Soft, nontender, nondistended. No palpable organomegaly is noted. BACK: Shows spine grossly in the midline. Normal-appearing cervical lordotic curvature. There is slightly increased thoracic kyphosis, some mild flattening of the lumbar lordotic curvature. Lumbar paraspinous muscles show symmetrical on inspection, on palpation shows some moderate tenderness diffusely throughout the upper, middle and lower distribution of the paraspinous muscles without specific trigger points, without radiation of pain. The patient has good rotational motion of the lumbar spine, both laterally as well as extension and flexion without significant difficulty. No tenderness over the spinous process es, sacrum or sacroiliac regions. EXTREMITIES: Lower extremities show deep tendon reflexes 2+ in the patellar and tendo calcaneus tendons. Motor exam is 4 on a scale of 5 with right dorsiflexion, extension, quadriceps and hamstring flexion and 5/5 on the left. Peripheral pulses are 1+ posterior tibial. No peripheral edema is noted bilaterally. Lower extremities are warm and dry to touch, equal in color and appearance. Straight leg raise noted to be positive on the right about 40 degrees, left side is negative. Gaenslen's and Fabian's maneuvers are negative bilaterally as well. SKIN: Shows warm and dry, good turgor. No edema. No sores, rashes or bruising throughout. Procedure: Procedure: Options were discussed with patient. Patient's old chart was reviewed his his current medication regimen updated current review of systems updated today as w sascha. Patient has clinical radiculopathy on the right at L4-5 dermatomal distribution, with MRI scan as noted. We will preauthorize patient for lumbar epidural steroid injection as he is done very well with these in the past patient will continue stretching strength exercises meantime as well as oral analgesics as currently. Once approved patient will return for translaminar approach L4-5 level lumbar epidural steroid injection with fluoroscopic guidance. Medication Injected: Med Injected: None Condition at Discharge: Condition at Discharge: Condition at discharge is stable. BERTA LEVY MD September 19, 2021 11:42
== END | disposition home or self-care (01) ==
LOC: PNCL 10:33
PROVIDERS: ATTEND Anesthesiology
DX: M51.16 Intervertebral disc disorders with radiculopathy, lumbar region (principal); J44.9 Chronic obstructive pulmonary disease, unspecified; E78.00 Pure hypercholesterolemia, unspecified; Z85.828 Personal history of other malignant neoplasm of skin; Z79.899 Other long term (current) drug therapy; Z98.890 Other specified postprocedural states; Z72.89 Other problems related to lifestyle
CPT/HCPCS: 99212; G0463

== ENCOUNTER → 2021-10-03 | Outpatient (CLI) | payer BC, OTHER ==
[2016-07-29 08:48] VITALS: BP 112/62
[~2021-10-03] MED LIST changes: +DEXAMETHASONE PRES.FREE 10 MG/ML VIAL. ONE; +IOHEXOL 180 MG/ML 10 ML VIAL. ONE
--- NOTE | 2021-10-03 10:35 | PDOC4 ---
Procedure Note: ICD 10 Code: ICD 10 Code: M54.16 M51.36 Procedure Note: Patient was consented for lumbar epidural steroid injection with fluoroscopic guidance. Risks were discussed including but not limited to: Bleeding, infection, possibility of epidural hematoma and subsequent neurological compromise, dural puncture, headaches, spinal cord and/or nerve damage, side effects of steroid medication, and poor results regarding pain control. Patient understands and wished to proceed. Procedure is lumbar epidural steroid injection under local anesthetic using sterile prep and drape at the L4-5 level using C-arm fluoroscopic guidance in both AP and lateral views medications injected is 20 mg dexamethasone +10mL preservative-free normal saline and 2 mL contrast- condition at discharge is stable patient tolerated procedure well had no complications. BERTA LEVY MD October 03, 2021 10:35
--- NOTE | 2021-10-03 10:35 | PDOC ---
Progress Note - Pain Clinic Date of Service: DOS: DATE: 10/03/21 TIME: 10:32 Diagnosis: Dx: Lumbar radiculopathy with lumbar degenerative disc disease History or Present Illness: HPI: 71-year-old male returns for follow-up status post evaluation preauthorization for lumbar epidural steroid injection. Patient reports still significant pain low back right lower extremity posterior gluteus posterior lateral thigh lateral anterior thigh anteromedial thigh medial lower leg worse with walking and standing and weightbearing patient reports is a 10 on scale 10 is worst least and average over the past week and is a 10 today patient was aching and tight radiating in the right lower extremity as well patient reports no loss of motor function but significant fatigability the right lower extremity with walking and standing patient reports no bowel or bladder incontinence no loss of motor function better with sitting or laying down wakes him sleep only very occasionally not most nights. Patient reports no deficits but again fatigue in the right lower extremity significant with activity. Physical Exam: VS: Blood pressure is 136/76 pulse 69 respirations 18 temperature 98.3 F height is 6 foot 1 inch weight is 219 pounds. PE: PHYSICAL EXAMINATION: GENERAL: The patient is awake, alert, oriented, appropriate, very pleasant in demeanor HEENT: Shows normocephalic, atraumatic. Extraocular movements are intact and symmetrical. Oral cavity: Mucous membranes moist and pink. Dentition is int act. NECK: Shows anterior throat supple without palpable lymphadenopathy noted. Swallow reflex symmetrical. CHEST: Shows normal on inspection. Breath sounds are clear bilaterally. HEART: Shows S1, S2 clear. No murmurs auscultated. ABDOMEN: Soft, nontender, nondistended. No palpable organomegaly is noted. BACK: Shows spine grossly in the midline. Normal-appearing cervical lordotic curvature. There is slightly increased thoracic kyphosis, some minor flattening of the lumbar lordotic curvature. Lumbar paraspinous muscles show symmetrical on inspection, on palpation shows some moderate tenderness diffusely throughout the upper, middle and lower distribution of the paraspinous muscles without specific trigger points, without radiation of pain. The patient has good rotational motion of the lumbar spine, both laterally as well as extension and flexion without significant difficulty. EXTREMITIES: Lower extremities show deep tendon reflexes 2+ in the patellar and tendo calcaneus tendons. Motor exam is 4 on a scale of 5 with right dorsiflexion, extension, quadriceps and hamstring flexion and 5/5 on the left. Peripheral pulses are 1+ posterior tibial. No peripheral edema is noted bilaterally. Lower extremities are warm and dry. SKIN: Shows warm and dry, good turgor. No edema. No sores, rashes or bruising throughout. Procedure: Procedure: Options discussed with patient. Patient's old chart was reviewed his current medication regimen updated current review of systems updated today as well. We will proceed with a lumbar epidural steroid injection today with fluoroscopic guidance. Risks were discussed including but not limited to: Bleeding, infection, possibility of epidural hematoma and subsequent neurological compromise, dural puncture, headaches, spinal cord and/or nerve damage, side effects of steroid medication, and poor results regarding pain control. Patient understands and wished to proceed. Patient will return to the clinic in approximately 2 weeks for follow-up, was counseled as return appointment, activity level, and side effects to be aware of. Medication Injected: Med Injected: Procedure is lumbar epidural steroid injection under local anesthetic using sterile prep and drape at the L4-5 level using C-arm fluoroscopic guidance in both AP and lateral views medications injected is 20 mg dexamethasone +10mL pr eservative-free normal saline and 2 mL contrast- condition at discharge is stable patient tolerated procedure well had no complications. Condition at Discharge: Condition at Discharge: Condition at discharge is stable, patient tolerated the procedure well and had no complications. BERTA LEVY MD October 03, 2021 10:35
== END | disposition home or self-care (01) ==
LOC: PNCL 09:24
PROVIDERS: ATTEND Anesthesiology
DX: M51.16 Intervertebral disc disorders with radiculopathy, lumbar region (principal); E78.00 Pure hypercholesterolemia, unspecified; J44.9 Chronic obstructive pulmonary disease, unspecified; Z85.828 Personal history of other malignant neoplasm of skin; Z79.899 Other long term (current) drug therapy; Z98.890 Other specified postprocedural states
CPT/HCPCS: 62323; J1100; Q9965